=== PATIENT | female | born 1970 | race Caucasian/White ===

== ENCOUNTER 2018-06-30 04:21 | Emergency (ER) | payer MEDICAID ==
[~2018-06-30] VITALS: Ht 180.3 cm; Wt 89.2 kg
[2018-06-30 04:29] VITALS: BP 136/90
== END 2018-06-30 05:19 | disposition home or self-care (01) ==
LOC: ED 05:16
DX: F31.9 Bipolar disorder, unspecified (principal)
CPT/HCPCS: 99284

== ENCOUNTER 2018-07-06 19:29 | Emergency (ER) | payer MEDICAID | END 2018-07-06 20:33 | disposition left against medical advice (07) | LOC: ED 20:27 | DX: Z53.21 Procedure and treatment not carried out due to patient leaving prior to being seen by health care provider (principal) ==

== ENCOUNTER 2018-07-07 11:27 | Emergency (ER) | payer MEDICAID ==
[~2018-07-07] VITALS: Ht 172.7 cm; Wt 81.0 kg
[2018-07-07 12:27] LABS: BASOPHILS # (AUTO) 0.03 x10^3/uL (0-0.1); BASOPHILS % (AUTO) 0 % (0-1); EOSINOPHILS # (AUTO) 0.07 x10^3/uL (0-0.4); EOSINOPHILS % (AUTO) 1 % (1-7); LYMPHOCYTES # (AUTO) 0.93 x10^3/uL (1-3.4); LYMPHOCYTES % (AUTO) 10 % (22-44); MD NO; MEAN CORPUSCULAR HEMOGLOBIN 29.9 pg (27.0-34.8); MEAN CORPUSCULAR HGB CONC 33.3 g/dL (32.4-35.8); MEAN CORPUSCULAR VOLUME 89.6 fL (80-100); MEAN PLATELET VOLUME 7.6 fL (7.4-10.4); MONOCYTES # (AUTO) 0.64 x10^3/uL (0.2-0.8); MONOCYTES % (AUTO) 7 % (2-9); NEUTROPHILS # (AUTO) 7.33 x10^3/uL (1.8-6.8); NEUTROPHILS % (AUTO) 82 % (42-75); PLATELET COUNT 362 x10^3/uL (130-400); RED BLOOD COUNT 3.78 x10^6/uL (3.82-5.3); RED CELL DISTRIBUTION WIDTH 15.9 % (9.6-15.2)
[2018-07-07] MEDS ORDERED: LORazepam 1MG TABLET PO ONE (12:30)
[2018-07-07 12:37] LABS: ALANINE AMINOTRANSFERASE 16 U/L (12-78); ALBUMIN 3.4 g/dL (3.4-5.0); ANION GAP 10 mmol/L (5-15); CHLORIDE 106 mmol/L (98-107); CREATININE 0.63 mg/dL (0.55-1.02); T4 (THYROXINE) 9.5 mcg/dL (4.8-13.9)
[2018-07-07 12:49] LABS: ALKALINE PHOSPHATASE 71 U/L (45-117); BILIRUBIN,TOTAL 0.4 mg/dL (0.2-1.0); THYROID STIMULATING HORMONE 0.164 mIU/L (0.358-3.740); TOTAL PROTEIN 6.4 g/dL (6.4-8.2)
[2018-07-07] MEDS ORDERED: LORazepam 1MG TABLET ONE (12:54)
[2018-07-07 12:55] LABS: MICROSCOPIC INDICATED
[2018-07-07 13:15] LABS: OSMOLALITY,URINE 646 mOsm/kg (500-850)
[2018-07-07 14:18] VITALS: BP 137/87
== END 2018-07-07 14:21 | disposition home or self-care (01) ==
LOC: ED 13:38
DX: F31.9 Bipolar disorder, unspecified (principal); R35.8 Other polyuria
CPT/HCPCS: 36415; 80053; 81001; 83735; 83935; 84436; 84443; 85025; 99284

== ENCOUNTER 2018-07-09 15:36 | Emergency (ER) | payer MEDICAID | END 2018-07-09 16:36 | disposition left against medical advice (07) | LOC: ED 16:30 | DX: J11.1 Influenza due to unidentified influenza virus with other respiratory manifestations (principal); Z53.21 Procedure and treatment not carried out due to patient leaving prior to being seen by health care provider ==

== ENCOUNTER 2018-07-12 12:19 | Emergency (ER) | payer MEDICAID ==
[~2018-07-12] VITALS: Ht 180.3 cm; Wt 82.0 kg
[2018-07-12 12:52] LABS: BASOPHILS # (AUTO) 0.04 x10^3/uL (0-0.1); BASOPHILS % (AUTO) 1 % (0-1); EOSINOPHILS # (AUTO) 0.27 x10^3/uL (0-0.4); EOSINOPHILS % (AUTO) 5 % (1-7); LYMPHOCYTES # (AUTO) 1.26 x10^3/uL (1-3.4); LYMPHOCYTES % (AUTO) 23 % (22-44); MD NO; MEAN CORPUSCULAR HEMOGLOBIN 29.2 pg (27.0-34.8); MEAN CORPUSCULAR HGB CONC 33.3 g/dL (32.4-35.8); MEAN CORPUSCULAR VOLUME 87.7 fL (80-100); MONOCYTES # (AUTO) 0.34 x10^3/uL (0.2-0.8); MONOCYTES % (AUTO) 6 % (2-9); NEUTROPHILS # (AUTO) 3.53 x10^3/uL (1.8-6.8); NEUTROPHILS % (AUTO) 65 % (42-75); PLATELET COUNT 348 x10^3/uL (130-400); RED BLOOD COUNT 3.79 x10^6/uL (3.82-5.3); RED CELL DISTRIBUTION WIDTH 16.4 % (9.6-15.2)
[2018-07-12 12:54] LABS: ALBUMIN 2.9 g/dL (3.4-5.0); ANION GAP 8 mmol/L (5-15); CALCIUM 8.6 mg/dL (8.5-10.1); CHLORIDE 108 mmol/L (98-107); CREATININE 0.79 mg/dL (0.55-1.02)
[2018-07-12 13:08] LABS: ACETAMINOPHEN 2 mcg/mL (10-30)
[2018-07-12 13:13] LABS: HCG UR SG 1.007 (1.003-1.030)
[2018-07-12 13:27] LABS: AMPHETAMINE SCREEN, URINE Negative (Negative); BARBITURATE SCREEN, URINE Negative (Negative); BENZODIAZEPINE SCREEN, URINE Negative (Negative); CANNABINOID SCREEN, URINE Negative (Negative); COCAINE SCREEN, URINE Negative (Negative); METHADONE SCREEN, URINE Negative (Negative); OPIATE SCREEN, URINE Negative (Negative)
[2018-07-12] MEDS ORDERED: QUET50TA5 PO (13:31)
[2018-07-12] MEDS ORDERED: TRILEPTAL (13:35)
[2018-07-12] MEDS ORDERED: HYDR25CA PO (13:35)
[2018-07-12] MEDS ORDERED: LEVO75TA5 PO (13:35)
[2018-07-12] MEDS ORDERED: PROAIR (13:35)
[2018-07-12] MEDS ORDERED: OXCA150T18 PO (13:35)
[2018-07-12] MEDS ORDERED: FLUO20CA8 PO (13:35)
[2018-07-12] MEDS ORDERED: TRAZ-136 PO (13:35)
[2018-07-12 13:43] VITALS: BP 112/78
== END 2018-07-12 13:46 | disposition home or self-care (01) ==
LOC: ED 13:09
DX: F31.9 Bipolar disorder, unspecified (principal)
CPT/HCPCS: 36415; 80048; 80307; 80329; 81025; 82040; 85025; 99284; G0480

== ENCOUNTER 2018-07-27 17:01 | Emergency (ER) | payer MEDICAID ==
[~2018-07-27] VITALS: Ht 180.3 cm; Wt 88.1 kg
[~2018-07-27 17:01] MED LIST: FLUO20CA8 PO; HYDR25CA PO; LEVO75TA5 PO; OXCA150T18 PO; PROAIR; QUET50TA5 PO; TRAZ-136 PO; TRILEPTAL
[2018-07-27 18:35] LABS: BASOPHILS # (AUTO) 0.05 x10^3/uL (0-0.1); BASOPHILS % (AUTO) 1 % (0-1); EOSINOPHILS # (AUTO) 0.04 x10^3/uL (0-0.4); EOSINOPHILS % (AUTO) 0 % (1-7); LYMPHOCYTES # (AUTO) 1.12 x10^3/uL (1-3.4); LYMPHOCYTES % (AUTO) 11 % (22-44); MD NO; MEAN CORPUSCULAR HEMOGLOBIN 28.3 pg (27.0-34.8); MEAN CORPUSCULAR HGB CONC 33.3 g/dL (32.4-35.8); MEAN PLATELET VOLUME 7.3 fL (7.4-10.4); MONOCYTES # (AUTO) 0.71 x10^3/uL (0.2-0.8); MONOCYTES % (AUTO) 7 % (2-9); NEUTROPHILS # (AUTO) 8.62 x10^3/uL (1.8-6.8); NEUTROPHILS % (AUTO) 82 % (42-75); PLATELET COUNT 335 x10^3/uL (130-400); RED BLOOD COUNT 3.84 x10^6/uL (3.82-5.3); RED CELL DISTRIBUTION WIDTH 16.6 % (9.6-15.2)
[2018-07-27 18:42] LABS: ALANINE AMINOTRANSFERASE 38 U/L (12-78); ALBUMIN 3.4 g/dL (3.4-5.0); ANION GAP 11 mmol/L (5-15); CALCIUM 9.3 mg/dL (8.5-10.1); CHLORIDE 107 mmol/L (98-107); CREATININE 0.62 mg/dL (0.55-1.02)
[2018-07-27 18:46] LABS: ALKALINE PHOSPHATASE 75 U/L (45-117); BILIRUBIN,TOTAL 0.3 mg/dL (0.2-1.0); TOTAL PROTEIN 6.9 g/dL (6.4-8.2)
[2018-07-27 18:48] LABS: MICROSCOPIC AUTO
[2018-07-27 19:08] LABS: CULTURE INDICATED? YES
[2018-07-27] MEDS ORDERED: ACETAMINOPHEN 325 MG TABLET ONE (19:46)
[2018-07-27 19:51] VITALS: BP 134/96
[2018-07-27] MEDS ORDERED: ACETAMINOPHEN 325 MG TABLET PO ONE (20:00)
== END 2018-07-27 20:19 | disposition home or self-care (01) ==
LOC: ED 20:00
DX: R51 Headache (principal); F31.9 Bipolar disorder, unspecified; Z59.0 Homelessness; Z72.9 Problem related to lifestyle, unspecified; Z75.9 Unspecified problem related to medical facilities and other health care; Z91.14 Patient's other noncompliance with medication regimen
CPT/HCPCS: 36415; 80053; 81001; 84703; 85025; 87086; 99283